=== PATIENT | male | born 1975 | race Caucasian/White ===

== ENCOUNTER 2023-08-11 10:01 | Emergency (ER) | payer OTHER ==
[~2023-08-11] VITALS: Ht 172.7 cm; Wt 100.0 kg
[2023-08-11 10:12] VITALS: TEMP 98.3; O2SAT 100
[2023-08-11 10:45] VITALS: BP 141/69; PULSE 54; RESP 18
[2023-08-11] MEDS ORDERED: HYDROCODONE/ACETAMINOPHEN 5/325MG TABLET PO ONE (10:45)
== END 2023-08-11 12:01 | disposition home or self-care (01) ==
LOC: ER 10:01
DX: S01.511A Laceration without foreign body of lip, initial encounter (principal); S20.212A Contusion of left front wall of thorax, initial encounter; Y04.0XXA Assault by unarmed brawl or fight, initial encounter; Y93.89 Activity, other specified; Y92.89 Other specified places as the place of occurrence of the external cause; Y99.8 Other external cause status
CPT/HCPCS: 71101; 99284

== ENCOUNTER 2023-08-27 15:45 | Emergency (ER) | payer OTHER ==
[~2023-08-27] VITALS: Ht 170.2 cm; Wt 89.8 kg
[2023-08-27 15:55] VITALS: BP 138/80; O2SAT 98
[2023-08-27] MEDS ORDERED: MUPI1OIN4 TP (17:48)
[2023-08-27 19:01] VITALS: PULSE 72; RESP 14; TEMP 98.7
== END 2023-08-27 19:02 | disposition home or self-care (01) ==
LOC: ER 15:45
DX: L01.00 Impetigo, unspecified (principal); Z48.02 Encounter for removal of sutures
CPT/HCPCS: 99283